=== PATIENT | female | born 2000 | race Caucasian/White ===

== ENCOUNTER 2022-10-22 09:05 | Emergency (ER) | payer OTHER ==
--- OUTSIDE RECORDS SUMMARY | 2022-10-22 09:10 | XMS REPORT | Continuity of Care Document ---
:2000 Author Organization [facility] t Address [address] [place] [address] Care Team Providers Name Role Phone Provider, [facility] Attending Clinician Unavailable Sheree Carter Attending Clinician Lab, Adc Fam Pob I Attending Clinician Unavailable Doctor Unassigned, [place] Attending Clinician Unavailable Payers Payer Name Policy Type Policy Number Effective Date Expiration Date S ource Problems Condition Condition Condition Status Onset Resolution Last Treating Co mments Source Name Details Category Date Date Treatment Clinician Date No known No known Disease Unive rs active active ity of problems problems [facility] Allergies, Adverse Reactions, Alerts Allergy Allergy Status Severity Reaction(s) Onset Inactive Treating Comm ents Source Name Type Date Date Clinician NO KNOWN Drug Active Univers ALLERGIE Class ity of S [facility] Social History Social Habit Start Date Stop Date Quantity Comments Source Exposure to Not sure [facility] SARS-CoV-2 (event) Medica l Branch Sex Assigned At [facility] Tobacco use and 2020-07-10 2020-07-10 Never used [facility] exposure 00:00:00 00:00:00 [facility] Smoking Status Start Date Stop Date Source Unknown if ever smoked General acute hospital Current some day smoker 2020-07-10 00:00:00 [facility] Medications Ordered Filled Start Stop Current Ordering Indication Dosage Frequency Signature Comments Components Source Medication Medication Date Date Medication? Clinician (SIG) Name Name LOESTRIN FE Yes TK 1 T PO U nivers 1 mg-20 mcg 8-05 QD ity of (21)/75 mg 00:00: [place] (7) tablet 00 Medical Branch LOESTRIN FE Yes TK 1 T PO U nivers 1 mg-20 mcg 8-05 QD ity of (21)/75 mg 00:00: [place] (7) tablet 00 Medical Branch LOESTRIN FE 2020-0 Yes TK 1 T PO U nivers 1 mg-20 mcg 8-05 QD ity of (21)/75 mg 00:00: [place] (7) tablet 00 Medical Branch LOESTRIN FE 2020-0 Yes TK 1 T PO U nivers 1 mg-20 mcg 8-05 QD ity of (21)/75 mg 00:00: [place] (7) tablet 00 Medical Branch LOESTRIN FE 2020-0 Yes TK 1 T PO U nivers 1 mg-20 mcg 8-05 QD ity of (21)/75 mg 00:00: [place] (7) tablet 00 Medical Branch LOESTRIN FE 2020-0 Yes TK 1 T PO U nivers 1 mg-20 mcg 8-05 QD ity of (21)/75 mg 00:00: [place] (7) tablet 00 Medical Branch LOESTRIN FE 2020-0 Yes TK 1 T PO U nivers 1 mg-20 mcg 8-05 QD ity of (21)/75 mg 00:00: [place] (7) tablet 00 Medical Branch Vital Signs Vital Name Observation Time Observation Value Comments Source Systolic blood 2020-07-10 19:22:00 102 mm[Hg] Univer sity of pressure [facility] Diastolic blood 2020-07-10 19:22:00 70 mm[Hg] Unive rsity of pressure [facility] Heart rate 2020-07-10 19:22:00 87 /min [facility] Body temperature 2020-07-10 19:22:00 36.17 Agustina [facility] Respiratory rate 2020-07-10 19:22:00 17 /min [facility] Body height 2020-07-10 19:22:00 170.2 cm [facility] Body weight 2020-07-10 19:22:00 61.236 kg [facility] BMI 2020-07-10 19:22:00 21.14 kg/m2 [facility] Oxygen saturation in 2020-07-10 19:22:00 97 /min [facility] blood by [facility] Pulse oximetry Branch Procedures Procedure Date / Time Performed Performing Clinician Ameena kamaljit US HEAD NECK 2020-07-10 20:46:20 [facility] POCT GRP A STREP 2020-07-10 00:00:00 Sonal Herzogthia [facility] ([facility]) [facility] Encounters Start End Encounter Admission Attending Care Care Encounter Source Date/Time Date/Time Type Type Clinicians Facility Department ID 2020-07-11 2020-07-11 Telephone Provider, [facility] [id number] Univers 00:00:00 00:00:00 [facility] Urgent Health [id number] ity of Care [place] [id number] Edy as Professio [phone] [place] [address] [address] 2020-07-10 2020-07-10 Hospital Mino [facility] [id number] Univers 15:26:59 23:59:00 Encounter Sheree Gonzalez [id number] ity [id number] [phone] [facility] [address] [place] 2020-07-10 2020-07-10 Urgent Provider, [facility] [id number] Univers 13:58:28 14:56:32 Care Sheree Herzog [id number] ity of [place] [id number] Edy as Professio [phone] [address] Office [address] One 2020-07-10 2020-07-10 Body Liner Lab, Adc Fam Pob I [facility] [id number] Univers 14:45:47 14:55:47 Visit Sheree Herzog [id number] ity of [place] [id number] Edy as Professio [phone] [address] Office [address] One 2020-07-10 2020-07-10 Outpatient R [facility] [id number] Univers 14:00:00 14:00:00 ity of [facility] 2020-07-10 2020-07-10 Letter Doctor GARCIA [id number] Univers 00:00:00 00:00:00 (Out) Unassigned, NICKIE [id number] ity of [place] [facility] [id number] Edy as [phone] [facility] eliecer 044 Branch 2020-07-10 2020-07-10 Letter ANTHONY Herzog [id number] Univers 00:00:00 00:00:00 (Out) Sheree [place] [id number] it y of [place] [id number] Edy as Professio [phone] Ia dical n[place] 0[address] Branch Office [address] One 2020-07-10 2020-07-10 Letter Doctor GARCIA [id number] Univers 00:00:00 00:00:00 (Out) Unassigned, NICKIE [id number] ity of [place] [facility] [id number] Edy as [phone] [facility] 044 Branch Results Test Test Test Results Result Source Description Time Comments Comments US HEAD NECK HISTORY: Left neck tender University of 22 nodule. COMPARISON: None. [facility] 20:51:35 TECHNIQUE: Area of Branch concern and surrounding portions of the left neck wereevaluated without and with color interrogation. For comparison purposes, alimited ultrasound of the right side of the neck also was performed. FINDINGS: Multiple lymph nodes are detected in the left side of the neck,tender lymph node is 2.0 x 1.2 cm in size and showed mild increasedvascularity. Additional large 3 cm x 0.7 cm size and 1.4 x 0.6 cm size lymph nodes notedin the left side of the neck without increased vascularity. Comparison evaluation of the right side of the neck also showed lymphnodes, largest a 2.3 x 0.5 cm size. Right-sided lymph nodes do not show anyincreased vascularity. CONCLUSIONS: Bilateral cervical lymphadenopathy, including one slightlyhypervascular enlarged lymph node in the left side of the neck whichcorresponds to the tender nodule. Hypervascularity could be due to aninflamed lymph node. [facility], Radiant Results Inft - 07/10/2020 3:52 PM CDTHISTORY: Left neck tender nodule.COMPARISON: None.TECHNIQUE: Area of concern and surrounding portions of the left neck wereevaluated without and with color interrogation. For comparison purposes, alimited ultrasound of the right side of the neck also was performed.FINDINGS: Multiple lymph nodes are detected in the left side of the neck,tender lymph node is 2.0 x 1.2 cm in size and showed mild increasedvascularity.Dayron tional large 3 cm x 0.7 cm size and 1.4 x 0.6 cm size lymph nodes notedin the left side of the neck without increased vascularity.Comparison evaluation of the right side of the neck also showed lymphnodes, largest a 2.3 x 0.5 cm size. Right-sided lymph nodes do not show anyincreased vascularity.CONCLUSIONS: Bilateral cervical lymphadenopathy, including one slightlyhypervascular enlarged lymph node in the left side of the neck whichcorresponds to the tender nodule. Hypervascularity could be due to aninflamed lymph node. POCT GRP A STREP (MOLECULAR) 2020-07-10 19:41:00 Test Item Value Reference Range Interpretation Comme nts POCT GP A STREP (test code = 17629-1) negative Negative - Negat shahid [facility] GRP A STREP (MOLECULAR)2020-07-10 19:41:00 Test Item Value Reference Range Interpretation Comments POCT GP A STREP (test code = negative Negative - Negative 80163-6) [facility] GRP A STREP (MOLECULAR)2020-07-10 19:41:00 Test Item Value Reference Range Interpretation Comments POCT GP A STREP (test code = negative Negative - Negative 58431-3) [facility]
[2022-10-22] MEDS ORDERED: HALOPERIDOL LACT 5 MG/ML INJ ONE (09:29)
[2022-10-22] MEDS ORDERED: Ringers Lactate 1,000 ML IV ONE (09:29)
[2022-10-22 09:39] LABS: Absolute Lymphocytes (CBC) 1.6 K/uL (0.7-4.9); Hematocrit 41.6 % (36.0-45.0); Lymphocytes % 23.8 % (15.3-44.8); MCV 91.1 fL (80-100); MPV 8.6 fL (7.6-11.3); RBC Red Blood Cell Count 4.57 M/uL (3.86-4.86)
[2022-10-22 09:57] LABS: ALT/SGPT 24 U/L (13-56); AST/SGOT 17 U/L (15-37); Albumin 3.6 g/dL (3.4-5.0); Alkaline Phosphatase 68 U/L (45-117); BUN Blood Urea Nitrogen 17 mg/dL (7-18); Bicarbonate 25 mmol/L (21-32); Bilirubin Total 0.2 mg/dL (0.2-1.0); Glomerular Filtration Rate 94 ml/min (=/>90); Glucose Level 107 mg/dL (74-106); Lipase 79 U/L (73-393); Protein, Total 7.3 g/dL (6.4-8.2); Sodium Level 139 mmol/L (136-145)
[2022-10-22 10:05] LABS: HCG, Quantitative < 1 mIU/mL (1-3)
--- NOTE | 2022-10-22 11:56 | ER ---
Nurse's Notes [facility] Name: Winter Sigala Age: 22 yrs Sex: Female : 2000 Arrival Date: 10/22/2022 Time: 09:11 Bed 6 Private MD: Diagnosis: Vomiting Presentation: 10/22 09:29 Chief complaint: Patient states: she thought she was with morning sickness for ap3 a few weeks now, but she has been getting negative tests. Patient states she she had coffee ground emesis this morning. Patient reports also being stuck with a "dirty needle" 5-6 months ago. Coronavirus screen: At this time, the client does not indicate any symptoms associated with coronavirus-19. Ebola Screen: No symptoms or risks identified at this time. Initial Sepsis Screen: Does the patient meet any 2 criteria? No. Patient's initial sepsis screen is negative. Does the patient have a suspected source of infection? No. Patient's initial sepsis screen is negative. Initial Sepsis Screen: Does the patient meet any 2 criteria?. Risk Assessment: Do you want to hurt yourself or someone else? Patient reports no desire to harm self or others. Onset of symptoms is unknown. 09:29 Method Of Arrival: Ambulatory ap3 09:29 Acuity: JOY 3 ap3 Triage Assessment: 09:41 General: Appears in no apparent distress. Behavior is calm, cooperative. Pain: Denies ap3 pain. Neuro: Level of Consciousness is awake, alert, obeys commands, Oriented to person, place, time, situation. Cardiovascular: Patient's skin is warm and dry. Respiratory: Airway is patent Respiratory effort is even, unlabored. GI: Reports nausea, vomiting, coffee ground emesis. 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 - Social history:: Smoking status: Reported history of juuling and/or vaping. Patient uses alcohol, only on a social basis. street drugs, marijuana. Screenin:42 [facility] ED Fall Risk Assessment (Adult) History of falling in the last 3 months, ap3 including since admission No falls in past 3 months (0 pts). Abuse screen: Denies threats or abuse. Nutritional screening: Has had N/V for 3 or more days. Tuberculosis screening: No symptoms or risk factors identified. Assessment: 11:03 General: Appears in no apparent distress. comfortable, Behavior is calm, cooperative, ld1 appropriate for age. Pain: Denies pain. Neuro: Level of Consciousness is awake, alert, obeys commands, Oriented to person, place, time, situation. Cardiovascular: Capillary refill < 3 seconds Patient's skin is warm and dry. Respiratory: Airway is patent Respiratory effort is even, unlabored. GI: Abdomen is flat, non-distended, Reports nausea, vomiting. : No signs and/or symptoms were reported regarding the genitourinary system. EENT: No signs and/or symptoms were reported regarding the EENT system. Derm: No signs and/or symptoms reported regarding the dermatologic system. Musculoskeletal: No signs and/or symptoms reported regarding the musculoskeletal system. 12:16 Reassessment: Patient denies pain at this time. Patient states feeling better. Patient mb9 states symptoms have improved. General: Appears in no apparent distress. comfortable, Behavior is calm, cooperative, appropriate for age. Neuro: Level of Consciousness is awake, alert, obeys commands, Oriented to person, place, time, situation. Respiratory: Airway is patent. Vital Signs: 09:29 BP 112 / 78; Pulse 86; Resp 17; Temp 98.1; Pulse Ox 98% ; Weight 58.97 kg; Height 5 ft. ap3 7 in. (170.18 cm); 10:18 BP 109 / 68; ap3 11:03 BP 103 / 71; Pulse 71; Resp 18; Pulse Ox 97% on R/A; Pain 0/10; ld1 12:16 BP 105 / 81; Pulse 72; Resp 18; Pulse Ox 100% ; mb9 09:29 Body Mass Index 20.36 (58.97 kg, 170.18 cm) ap3 ED Course: 09:11 Patient arrived in ED. rg4 09:11 Anthony Huynh PA is PHCP. [facility] 09:11 Elliot Harvey MD is Attending Physician. [facility] 09:13 Attending Physician role handed off by Elliot Harvey MD [facility] 09:13 Prabhjot Wing MD is Attending Physician. [facility] 09:20 Yoko Vick, RN is Primary Nurse. ap3 09:35 CBC with Diff Sent. jw7 09:35 CMP Sent. jw7 09:35 Lipase Sent. jw7 09:35 HCG-Quantitative Sent. jw7 09:35 Initial lab(s) drawn, by sc, sent to lab. Inserted saline lock: 20 gauge in right jw7 antecubital area, using aseptic technique. Blood collected. 09:41 Triage completed. ap3 09:42 Arm band placed on right wrist. ap3 09:42 Patient has correct armband on for positive identification. Bed in low position. Call ap3 light in reach. Side rails up X 1. Adult w/ patient. Pulse ox on. NIBP on. Door closed. Noise minimized. Warm blanket given. 11:55 Onesimo Trent MD is Referral Physician. [facility] 12:17 No provider procedures requiring assistance completed. IV discontinued, intact, mb9 bleeding controlled, No redness/swelling at site. Pressure dressing applied. Administered Medications: 09:43 Drug: Lactated Ringers Solution 1000 ml Route: IV; Rate: 1000 bolus; Site: right ld1 antecubital; 09:43 Drug: HALdol (haloperidol) 5 mg Route: IVP; Site: right antecubital; ld1 11:20 Follow up: Response: No adverse reaction ap3 Medication: 09:42 VIS not applicable for this client. ap3 Outcome: 11:56 Discharge ordered by . [facility] 12:17 Discharged to home ambulatory. mb9 12:17 Condition: stable 12:17 Discharge instructions given to patient, Instructed on discharge instructions, follow up and referral plans. Demonstrated understanding of instructions, follow-up care, medications, Prescriptions given X 2. 12:17 Patient left the ED. mb9 Signatures: Prabhjot Wing MD MD cha Mickail, Joel, PA PA jmm Garcia, Rubi rg4 Yoko Vick, HALEY RN ap3 Lulu Garza RN RN ld1 Sarah Hernandez7 Berkley Suarez RN RN mb9
--- NOTE | 2022-10-22 11:56 | EDPHYS ---
Physician Documentation [facility] Name: Winter Sigala Age: 22 yrs Sex: Female : 2000 Arrival Date: 10/22/2022 Time: 09:11 Bed 6 Private MD: JOSY Physician Prabhjot Wing HPI: 10/22 09:13 This 22 yrs old Female presents to ER via Ambulatory with complaints of Vomiting. jmm 09:13 The patient presents to the emergency department with nausea, vomiting. Onset: The jmm symptoms/episode began/occurred gradually, 3 week(s) ago. Is a 22-year-old female with no known chronic conditions presents emerged department with complaints of vomiting and which she considered was morning sickness going on for approximately 3 weeks. Patient states she took a test at home which was negative. Patient became concerned when she saw some blood in her vomit this morning. Patient denies any abdominal pain, fever, denies dark stools. Patient does not drink alcohol regularly. Patient states that she does smoke marijuana on a daily basis.. 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 - Social history:: Smoking status: Reported history of juuling and/or vaping. Patient uses alcohol, only on a social basis. street drugs, marijuana. ROS: 09:13 Constitutional: Negative for fever, chills, and weight loss, Cardiovascular: Negative jmm for chest pain, palpitations, and edema, Respiratory: Negative for shortness of breath, cough, wheezing, and pleuritic chest pain. 09:13 Abdomen/GI: Positive for vomiting. 09:13 All other systems are negative. Exam: 09:13 Constitutional: This is a well developed, well nourished patient who is awake, alert, jmm and in no acute distress. Head/Face: atraumatic. Eyes: EOMI, no conjunctival erythema appreciated ENT: Moist Mucus Membranes Neck: Trachea midline, Supple Chest/axilla: Normal chest wall appearance and motion. Cardiovascular: Regular rate and rhythm. No edema appreciated Respiratory: Normal respirations, no respiratory distress appreciated 09:13 Back: Normal ROM Skin: General appearance color normal MS/ Extremity: Moves all extremities, no obvious deformities appreciated, no edema noted to the lower extremities Neuro: Awake and alert Psych: Behavior is normal, Mood is normal, Patient is cooperative and pleasant 09:13 Abdomen/GI: Inspection: abdomen appears normal, Bowel sounds: normal, Palpation: abdomen is soft and non-tender, in all quadrants. Vital Signs: 09:29 BP 112 / 78; Pulse 86; Resp 17; Temp 98.1; Pulse Ox 98% ; Weight 58.97 kg; Height 5 ft. ap3 7 in. (170.18 cm); 10:18 BP 109 / 68; ap3 11:03 BP 103 / 71; Pulse 71; Resp 18; Pulse Ox 97% on R/A; Pain 0/10; ld1 12:16 BP 105 / 81; Pulse 72; Resp 18; Pulse Ox 100% ; mb9 09:29 Body Mass Index 20.36 (58.97 kg, 170.18 cm) ap3 MDM: 09:13 Patient medically screened. [facility] 11:55 Data reviewed: vital signs, nurses notes. Counseling: I had a detailed discussion with joaquín the patient and/or guardian regarding: the historical points, exam findings, and any diagnostic results supporting the discharge/admit diagnosis, the need for outpatient follow up, to return to the emergency department if symptoms worsen or persist or if there are any questions or concerns that arise at home. 11:55 ED course: Patient's abdomen soft. Labs are unremarkable. Vital signs normal. Patient joaquín has had no active vomiting. I do not currently suspect Boerhaave's. Vomiting most likely due to chronic marijuana use. Will treat with outpatient Haldol. Patient also advised follow GI for further evaluation. Patient was otherwise given strict return precautions. Patient understood and agrees plan of care.. 10/22 09:22 Order name: CBC with Diff; Complete Time: 10: [facility] 10/22 09:22 Order name: CMP; Complete Time: 10: [facility] 10/22 09:22 Order name: Lipase; Complete Time: 10: [facility] 10/22 09:22 Order name: HCG-Quantitative; Complete Time: 10: [facility] 10/22 09:22 Order name: IV Saline Lock; Complete Time: 09:34 [facility] 10/22 09:22 Order name: Labs collected and sent; Complete Time: 09:35 jmm 10/22 11:10 Order name: PO challenge; Complete Time: 12:16 jm Administered Medications: 09:43 Drug: Lactated Ringers Solution 1000 ml Route: IV; Rate: 1000 bolus; Site: right ld1 antecubital; 09:43 Drug: HALdol (haloperidol) 5 mg Route: IVP; Site: right antecubital; ld1 11:20 Follow up: Response: No adverse reaction ap3 Disposition Summary: 10/22/22 11:56 Discharge Ordered Location: Home jm Condition: Stable jmm Diagnosis - Vomiting jmm [facility] - With: Onesimo Trent MD - When: 2 - 3 days - Reason: Recheck today's complaints, Continuance of care, Re-evaluation by your physician Discharge Instructions: - Discharge Summary Sheet jmm - Clear Liquid Diet, Adult jmm - Cannabinoid Hyperemesis Syndrome [facility] Forms: - Work release form [facility] - Medication Reconciliation Form [facility] - Thank You Letter [facility] - Antibiotic Education [facility] - Prescription Opioid Use [facility] Prescriptions: - Haloperidol 2 mg Oral Tablet - take 1 tablet by ORAL route every 12 hours; 30 tablet; Refills: 0, Product [facility] Selection Permitted - Pepcid 20 mg Oral Tablet - take 1 tablet by ORAL route every 12 hours for 10 days; 20 tablet; Refills: 0, [facility] Product Selection Permitted Signatures: Dispatcher [employer] Prabhjot Rya MD MD cha Mickail, Joel, PA PA jmm Prokisch, Amanda, RN RN ap3 Lulu Garza RN RN ld1
[2022-10-22 12:41] VITALS: TEMP 98.1
[2022-10-22 12:44] VITALS: BP 105/81; O2SAT 100
== END 2022-10-22 12:17 | disposition home or self-care (01) ==
LOC: ER 09:05
DX: R11.10 Vomiting, unspecified (principal)
CPT/HCPCS: 85025; 36415; 84702; 83690; 80053; 96374; 99284; J1630; J7120